=== PATIENT | female | born 1985 | race Caucasian/White ===

== ENCOUNTER 2020-12-20 17:37 | Emergency (ER) | payer OTHER, SELFPAY ==
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
[2020-12-20 17:46] VITALS: BP 127/69; PULSE 92; RESP 18; TEMP 37.3; O2SAT 96; BMI 38.2
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
--- NOTE | 2020-12-20 18:11 | PC.NURSE ---
pt ambulated from ambulance bay to room 14 without difficulty
== END 2020-12-20 19:43 | disposition home or self-care (01) ==
LOC: HO.ED 18:46
PROVIDERS: Emergency Provider Emergency Medicine
DX: Z04.1 Encounter for examination and observation following transport accident (principal); M79.18 Myalgia, other site
CPT/HCPCS: 70450; 99283; 99284

== ENCOUNTER 2021-10-03 10:05 | Emergency (ER) | payer OTHER, SELFPAY ==
--- NOTE | ~2021-10-03 | XR_ITS ---
EXAMINATION: XR CHEST CLINICAL INFORMATION: Cough, shortness of breath, chest pain. COMPARISON: 08/26/2019 chest radiograph. TECHNIQUE: Frontal view of the chest was obtained. FINDINGS: No significant abnormality is noted involving the heart, lungs, mediastinum, bony thorax or soft tissues. XR/XR chest 1V IMPRESSION: No acute cardiopulmonary process.
[2021-10-03 10:07] VITALS: BP 130/75; PULSE 96; RESP 18; TEMP 36.8; O2SAT 98; BMI 124.7
--- NOTE | 2021-10-03 10:10 | ECG_ITS ---
Test Reason : chest pain Blood Pressure : / mmHG Vent. Rate : 086 BPM Atrial Rate : 086 BPM P-R Int : 138 ms QRS Dur : 084 ms QT Int : 336 ms P-R-T Axes : 061 072 041 degrees QTc Int : 402 ms Sinus rhythm with marked sinus arrhythmia Otherwise normal ECG No significant changes when compared with the previous EKG of 14 jan 2018 Referred By: Generic ED Physician Electronically Signed By:JESSICA HENRY
[2021-10-03 10:34] LABS: MANUAL DIFF FLAG NO
[2021-10-03 10:36] VITALS: BP 121/69; PULSE 86; RESP 19; O2SAT 99
[2021-10-03 10:36] LABS: Basophils Percent Auto 0.2 % (0-2); Eosinophils Absolute Auto 0.1 X10*3/uL (0.0-0.4); Eosinophils Percent Auto 0.5 % (0-4); Hematocrit 37.8 % (37.0-47.0); Hemoglobin 12.6 g/dl (12.0-16.0); Imm Gran Abs Auto 0.06 X10*3/uL (0.00-0.03); Imm Gran Pct Auto 0.5 % (0.0-0.4); Lymphocytes Absolute Auto 0.7 X10*3/uL (1.2-4.9); Lymphocytes Percent Auto 5.3 % (20-40); Mean Corpuscular HGB Conc 33.3 g/dl (31.0-35.0); Mean Corpuscular Hemoglobin 29.4 pg (27.0-33.0); Mean Corpuscular Volume 88.3 fL (80.0-98.0); Mean Platelet Volume 10.2 fL (9.4-12.3); Monocytes Absolute Auto 0.7 X10*3/uL (0.1-1.2); Monocytes Percent Auto 5.4 % (2-11); Neutrophils Absolute Auto 11.3 x10*3/uL (2.0-8.3); Neutrophils Percent Auto 88.1 % (45-73); Platelet Count 292 X10*3/uL (160-400); Red Blood Count 4.28 X10*6/uL (4.20-5.50); Red Cell Distribution Width 12.8 % (11.0-16.0); White Blood Count 12.8 X10*3/uL (4.8-10.8)
--- NOTE | 2021-10-03 10:51 | ED_ITS ---
HPI - Chest Pain General Chief Complaint: Chest Pain Stated Complaint: chest pain, sob, back pain Time Seen by Provider: 10/03/21 10:29 Source: patient Mode of arrival: ambulatory History of Present Illness HPI narrative: 36-year-old female with no significant past medical history presenting to the ED complaining of chills, congestion, productive cough, SOB, chest discomfort worse with deep inspiration and coughing x1 week. Admits was seen at urgent care yesterday prescribed prednisone and Augmentin which she has taken x1 day without improvement. Denies fever, chills, abdominal pain, recent travel, pedal edema MD complaint: chest discomfort Onset (ago): week(s) Related Data Previous Rx's Medication Instructions Recorded albuterol sulfate 90 mcg/actuation 2 puff INHALATION Q6H PRN #6.7 g 10/02/21 aerosol inhaler amoxicillin 875 mg-potassium 1 tab PO BID 10 Days #20 tab 10/02/21 clavulanate 125 mg tablet prednisone 20 mg tablet 20 mg PO DAILY 5 Days #5 tab 10/02/21 benzonatate 200 mg capsule 200 mg PO TID PRN #14 cap 10/03/21 Allergies Allergy/AdvReac Type Severity Reaction Status Date / Time No Known Allergies Allergy Unverified 10/02/21 16:22 [No Known Allergies*] Review of Systems Review of Systems: Constitutional: No Fever, No Chills, No Fatigue, No Malaise ENT/Mouth: No Ear Pain, + Nasal Congestion, No Sinus Pain, No Hoarseness, No sore throat, + Rhinorrhea, No Swallowing Difficulty Eyes: No Eye Pain, No Swelling, No Redness Cardiovascular: + Chest Pain, + SOB, No Dyspnea on Exertion, No Orthopnea, No Edema, No Palpitations Respiratory: + Cough, + Sputum, No Wheezing, No Dyspnea Gastrointestinal: No Nausea, No Vomiting, No Diarrhea, No Constipation, No Abdominal pain Genitourinary: No Dysuria, No Urinary Frequency, No Hematuria, No Flank Pain, No Urinary Flow Changes Musculoskeletal: No joint pain, No Myalgias, No Joint Swelling Skin: No Skin Lesions, No rash Neuro: No Weakness, No Numbness, No Dizziness, No Headache Yes all other systems are reviewed and are negative [facility] Past Medical History Attestation statement: The following information was validated with the patient. Medical History No known health problems Surgical History No history of previous surgery Social History Social History Advance Directives: No Advance Directives Information Provided: No Physical Exam Vital Signs: Vital Signs: Last Vital Signs Temp 98.2 F 10/03/21 12:27 Pulse 87 10/03/21 12:27 Resp 17 10/03/21 12:27 BP 124/77 10/03/21 12:27 Pulse Ox 97 10/03/21 12:27 BMI result Body Mass Index 124.7 Const: General: cooperative, healthy appearing, no acute distress, alert and awake Orientation/consciousness: patient oriented x3 Limitations: no limitations HEENT: Head: Yes normal to inspection and Yes atraumatic Ears: hearing grossly normal bilaterally General nose exam: Normal external nose present Face and sinus: Yes normal facial exam Eyes: General: appearance normal, both eyes and all related structures EOM: EOMs intact bilaterally Neck: Neck: Yes normal visual inspection and Yes no meningeal signs Resp: Effort & Inspection: normal respiratory effort and no respiratory distress Auscultation: clear to auscultation bilaterally, no rhonchi and no wheezes Cardio: Rate: regular rate and tachycardic Heart sounds: S1 normal heart sound present and S2 normal heart sound present GI: Inspection: Yes normal to inspection Palpation (GI): Soft to palpation, nontender, no guarding and not rigid : General: Yes no CVA tenderness Back/Spine/Pelvis: Back: no CVA tenderness Skin: Rashes: no rashes Wounds: no wounds Neuro: General: patient oriented x3, tone normal and no meningeal signs Gait exam (Neuro): Normal gait present Extrem: General: Yes normal to inspection and Yes no pedal edema Course Course Course Narrative: -1143--mild leukocytosis to 12.8 likely contributory to prednisone use > low concern for severe sepsis. D-dimer negative. Labs otherwise unremarkable including negative troponin -COVID-19 and influenza negative XR chest 1V IMPRESSION: No acute cardiopulmonary process. >> results discussed with patient including worrisome signs and symptoms and strict return precautions and needed follow-up with PCP. Recommended patient continue taking prednisone and Augmentin. Will also prescribe Tessalon Perles. ? MDM - Chest Pain MDM Narrative Medical decision making narrative: 36-year-old female with no significant past medical history presenting to the ED complaining of chills, congestion, productive cough, SOB, chest discomfort worse with deep inspiration and coughing x1 week. On exam tachycardic, NAD, coughing on exam likely contributing to tachycardia. Lungs CTA. No pedal edema. Concern for viral illness including COVID-19 versus influenza vs bronchitis vs pneumonia vs PE. Low concern for severe sepsis at this time. Symptoms atypical for ACS Plan: EKG, labs, CXR, COVID-19/influenza testing, DuoNeb, re-evaluate Medical Records Data Attestation: I reviewed the patient's medical records. Lab Data Attestation: I reviewed the patient's lab results. Result diagrams: 10/03/21 10:30 10/03/21 10:30 Labs: Lab Results 10/03/21 10/03/21 10/03/21 Range/Units 10:30 10:30 10:30 WBC 12.8 H (4.8-10.8) X10*3/uL RBC 4.28 (4.20-5.50) X10*6/uL Hgb 12.6 (12.0-16.0) g/dl Hct 37.8 (37.0-47.0) % MCV 88.3 (80.0-98.0) fL MCH 29.4 (27.0-33.0) pg MCHC 33.3 (31.0-35.0) g/dl RDW 12.8 (11.0-16.0) % Plt Count 292 (160-400) X10*3/uL MPV 10.2 (9.4-12.3) fL Immature Gran % (Auto) 0.5 H (0.0-0.4) % Neut % (Auto) 88.1 H (45-73) % Lymph % (Auto) 5.3 L (20-40) % Ashe % (Auto) 5.4 (2-11) % Eos % (Auto) 0.5 (0-4) % Baso % (Auto) 0.2 (0-2) % Lymph # (Auto) 0.7 L (1.2-4.9) X10*3/uL Ashe # (Auto) 0.7 (0.1-1.2) X10*3/uL Eos # (Auto) 0.1 (0.0-0.4) X10*3/uL Baso # (Auto) 0.0 (0.0-0.2) X10*3/uL Abs Immat Gran (auto) 0.06 H (0.00-0.03) X10*3/uL Absolute Neuts (auto) 11.3 H (2.0-8.3) x10*3/uL Absolute Nucleated RBC 0.000 (0.0-0.012) X10*3/uL Nucleated RBC % (auto) 0.0 (0.0-0.2) /100WBC D-Dimer High Sensitivty NG/ML Sodium 139 (135-145) mmol/L Potassium 4.3 (3.3-5.1) mmol/L Chloride 106 (96-108) mmol/L Carbon Dioxide 23 (22-29) mmol/L Anion Gap 14 (12-20) BUN 9 (9-16) mg/dL Creatinine 0.62 (0.5-1.4) mg/dL Estim Creat Clear Calc 72.4 Estimated GFR > 60 Random Glucose 102 (60-115) mg/dL Calcium 9.8 (8.4-10.2) mg/dL Magnesium 1.8 (1.6-2.6) mg/dL Total Bilirubin 0.4 (0.0-1.0) mg/dL Direct Bilirubin < 0.2 (0.0-0.5) mg/dL AST 15 (5-31) U/L ALT 18 (0-31) U/L Alkaline Phosphatase 117 (39-117) U/L Troponin I High Sens < 3.5 (<3.5-17.0) ng/L B-Natriuretic Peptide 11 (<100) pg/mL Total Protein 7.5 (6.5-8.0) g/dL Albumin 4.3 (3.5-5.0) g/dL COVID-19 (ARNOLDO) (Negative) COVID-19 Clin Com Influenza Type A (JAMIL) (Negative) Influenza Type B (JAMIL) (Negative) Influenza A & B Note 10/03/21 10/03/21 10/03/21 Range/Units 10:48 10:48 10:48 WBC (4.8-10.8) X10*3/uL RBC (4.20-5.50) X10*6/uL Hgb (12.0-16.0) g/dl Hct (37.0-47.0) % MCV (80.0-98.0) fL MCH (27.0-33.0) pg MCHC (31.0-35.0) g/dl RDW (11.0-16.0) % Plt Count (160-400) X10*3/uL MPV (9.4-12.3) fL Immature Gran % (Auto) (0.0-0.4) % Neut % (Auto) (45-73) % Lymph % (Auto) (20-40) % Ashe % (Auto) (2-11) % Eos % (Auto) (0-4) % Baso % (Auto) (0-2) % Lymph # (Auto) (1.2-4.9) X10*3/uL Ashe # (Auto) (0.1-1.2) X10*3/uL Eos # (Auto) (0.0-0.4) X10*3/uL Baso # (Auto) (0.0-0.2) X10*3/uL Abs Immat Gran (auto) (0.00-0.03) X10*3/uL Absolute Neuts (auto) (2.0-8.3) x10*3/uL Absolute Nucleated RBC (0.0-0.012) X10*3/uL Nucleated RBC % (auto) (0.0-0.2) /100WBC D-Dimer High Sensitivty 166 NG/ML Sodium (135-145) mmol/L Potassium (3.3-5.1) mmol/L Chloride (96-108) mmol/L Carbon Dioxide (22-29) mmol/L Anion Gap (12-20) BUN (9-16) mg/dL Creatinine (0.5-1.4) mg/dL Estim Creat Clear Calc Estimated GFR Random Glucose (60-115) mg/dL Calcium (8.4-10.2) mg/dL Magnesium (1.6-2.6) mg/dL Total Bilirubin (0.0-1.0) mg/dL Direct Bilirubin (0.0-0.5) mg/dL AST (5-31) U/L ALT (0-31) U/L Alkaline Phosphatase (39-117) U/L Troponin I High Sens (<3.5-17.0) ng/L B-Natriuretic Peptide (<100) pg/mL Total Protein (6.5-8.0) g/dL Albumin (3.5-5.0) g/dL COVID-19 (ARNOLDO) Negative (Negative) COVID-19 Clin Com See Note Influenza Type A (JAMIL) Negative (Negative) Influenza Type B (JAMIL) Negative (Negative) Influenza A & B Note See Note Discharge Plan Discharge Clinical Impression: Atypical chest pain, Bronchitis Patient Disposition: Home, Self-Care Instructions: Acute Bronchitis (ED) Additional Instructions: Your blood work and chest x-ray were reassuring. You tested negative for COVID- 19 and the flu. Continue taking previously prescribed antibiotic, steroid, and inhaler. In addition Tessalon Perles for cough, take as needed. Rest. Stay hydrated. Follow up with her doctor. If symptoms persist or worsen return to any emergency department or call 911 Silvestre an?lisis de juanis y la radiograf?a de t?rax fueron tranquilizadores. Man negativo para COVID-19 y la gripe. Contin?e tomando el antibi?leonor, el esteroide y el inhalador recetados previamente. Adem?s de Tessalon Perles para la tos, t?merino seg?n sea necesario. Descansar. Mantente hidratado. Seguimiento con silvestre m?dico. Si los s?ntomas persisten o empeoran, regrese a cualquier departamento de emergencia o llame al 911 Prescriptions: New benzonatate 200 mg capsule 200 mg PO TID PRN (Reason: cough) Qty: 14 0RF No Action prednisone 20 mg tablet 20 mg PO DAILY 5 Days Qty: 5 0RF albuterol sulfate 90 mcg/actuation HFA aerosol inhaler 2 puff inhalation Q6H PRN (Reason: shortness of breath or wheezing) Qty: 6.7 0RF amoxicillin-pot clavulanate 875-125 mg tablet 1 tab PO BID 10 Days Qty: 20 0RF Referrals: Estela Horvath MD [Primary Care Provider] - 3 days Print Language: Polish
[2021-10-03 10:54] LABS: Alanine Aminotransferase 18 U/L (0-31); Albumin Level 4.3 g/dL (3.5-5.0); Alkaline Phosphatase 117 U/L (39-117); Anion Gap 14 (12-20); Aspartate Amino Transferase 15 U/L (5-31); Bilirubin Direct < 0.2 mg/dL (0.0-0.5); Bilirubin Total 0.4 mg/dL (0.0-1.0); Blood Urea Nitrogen 9 mg/dL (9-16); Calcium 9.8 mg/dL (8.4-10.2); Carbon Dioxide 23 mmol/L (22-29); Chloride 106 mmol/L (96-108); Creatinine Clr Calc Pharmacy 72.4; Estimated Glomerular Filt Rate > 60; Glucose Random 102 mg/dL (60-115); Potassium 4.3 mmol/L (3.3-5.1); Sodium 139 mmol/L (135-145); Total Protein 7.5 g/dL (6.5-8.0)
[2021-10-03] MEDS: Albuterol/Iprat 2.5/0.5MG 3 ML AMPUL.NEB INHALE (10:54)
[2021-10-03 10:55] VITALS: PULSE 91; RESP 18; O2SAT 97
[2021-10-03 10:55] LABS: Magnesium 1.8 mg/dL (1.6-2.6)
[2021-10-03 11:00] LABS: B Type Natriuretic Peptide 11 pg/mL (<100); Troponin-I High Sensitivity < 3.5 ng/L (<3.5-17.0)
[2021-10-03 11:07] LABS: D Dimer High Sensitivity 166 NG/ML
[2021-10-03 11:14] LABS: COVID-19 Test Negative (Negative); IDNOW Serial# 16C4AD1C; Influenza A Negative (Negative); Influenza B2 Negative (Negative)
[2021-10-03 11:51] VITALS: PULSE 90
[2021-10-03 12:27] VITALS: BP 124/77; PULSE 87; RESP 17; TEMP 36.8; O2SAT 97
== END 2021-10-03 13:01 | disposition home or self-care (01) ==
PROVIDERS: Physician Assistant; Emergency Provider Emergency Medicine; PCP Internal Medicine
DX: R07.89 Other chest pain (principal); J20.9 Acute bronchitis, unspecified; Z20.822 Contact with and (suspected) exposure to COVID-19; R06.02 Shortness of breath
CPT/HCPCS: 36415; 71045; 80048; 80076; 83735; 83880; 84484; 85025; 85379; 87502; 87635; 93005; 94640; 99284

== ENCOUNTER 2023-01-24 14:16 | Outpatient (AMB) | payer OTHER, SELFPAY ==
--- NOTE | 2023-01-24 14:16 | MHC.PC.OV ---
Vital Signs 01/24/23 14:17 Height 5 ft 3 in Weight 248 lb BMI 43.9 BP 110/64 Blood Pressure Location Lt brachial Position Sitting Respiration 12 Pulse 88 Pulse Source Pulse Oximeter Pulse Oximetry (%) 98 Oxygen Delivery Method Room Air Intake Visit Reasons: New Patient Intake Note: Patient states that ever since shes had covid she has to sometimes use inhaler in order to breathe. 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 Information Interpreted: non-clinical & clinical Accompanied by: Self / Same As Patient Allergies No Known Allergies [No Known Allergies*] Allergy (Verified 01/24/23 14:33) Medication List - Last Reconciled 01/24/23 by CB Morgan albuterol sulfate 90 mcg/actuation 2 puffs inhalation Q6H PRN Tobacco use date assessed: 01/24/23 Dental Screening Dental Screen Date: 01/24/23 Did you have a dental visit in the last 12 months?: Yes Did you have a dental problem in the last 6 months where you did not have access to dental care?: No Was dental information given to patient?: Patient has dentist HPI HPI Comments History of Present Illness Details 37-year-old female new patient presents today to establish care. Past medical history significant for hashimotos, thyroid nodule and shortness of breath after COVID. Patient reports problems with her lungs went ER september 2021 for bronchitis. Patient cotninues to have ongoing SOB with activity and in the humidity. Patient reports uses albuterol rescue inhaler 1x a week. Patient reports that she was told to see a line service attendant in the past however she did not have insurance at the time. Pap: Referral entered. eye exam: Recommended every couple years. [facility] Medical History (Updated 01/25/23 @ 07:10 by CB Morgan) Thyroid nodule Surgical History (Updated 01/24/23 @ 14:42 by CB Morgan) Hx of cholecystectomy Family History (Updated 01/24/23 @ 14:42 by CB Morgan) Mother No problems noted. Father No problems noted. Social History (Updated 01/24/23 @ 14:43 by CB Morgan) Housing: House Alcohol intake: current Alcohol intake frequency: a few times a week Patient Tobacco Use Status: Never used Tobacco e-Cigarette/Vaping Use: Never Used Second Hand Smoke Exposure: No service: No Current occupational status: employed Current occupation: [employer] Cognitive needs: No Hearing needs: No Vision needs: Yes Questionnaire PHQ-9 Over the last 2 weeks, how often have you been bothered by any of the following problems? 1. Little interest or pleasure in doing things: not at all 2. Feeling down, depressed, or hopeless: several days 3. Trouble falling or staying asleep, or sleeping too much: several days 4. Feeling tired or having little energy: several days 5. Poor appetite or overeating: several days (poor appetite) 6. Feeling bad about yourself - or that you are a failure or have let yourself or your family down: not at all 7. Trouble concentrating on things, such as reading the newspaper or watching television: not at all 8. Moving or speaking so slowly that other people could have noticed. Or the opposite - being so fidgety or restless that you have been moving around a lot more than usual: not at all 9. Thoughts that you would be better off or of hurting yourself in some way: not at all Total score: 4 Depression Screening Interpretation: Negative Source: Developed by Drs. Rocael Swift, Shaila Briceno, Jose Weaver and colleagues, with an educational pete from [employer]. Thrive Questionnaire Date Thrive assessed: 01/24/23 I am a: Patient What is your living situation today?: I have a steady place to live Within the past 12 months, did the food you bought not last and you didn't have the money to get more?: Never true Within the past 12 months, did you worry whether your food would run out before you got money to buy more?: Never true Do you have trouble paying for medicines?: No Do you have trouble getting transportation to medical appointments?: No Do you have trouble paying your heating and electricity bill?: No Do you have trouble taking care of your child, family member or friend?: No Do you have trouble with day-to-day activities such as bathing, preparing meals, shopping, managing finances, etc.?: No Are you currently unemployed and looking for a job?: No Are you interested in more education?: Yes Please select the resources that you would like help with: None Currently or been in a relationship where the following occur: no concerns reported AUDIT C Alcohol Use Questionnaire (AUDIT-C) 1. How often do you have a drink containing alcohol?: 2-3 times a week 2. How many drinks containing alcohol do you have on a typical day when you are drinking?: 3 or 4 3. How often do you have six or more drinks on one occasion?: Never Total Score: 4 MARK-7 AMB Questionnaire MARK-7 Date MARK - 7 assessed: 01/24/23 Feeling nervous, anxious, or on edge: 3 = Nearly every day Not being able to stop or control worryin = Several days Worrying too much about different things: 0 = Not at all Trouble relaxin = Not at all Being so restless that it is hard to sit still: 0 = Not at all Becoming easily annoyed or irritable: 0 = Not at all Feeling afraid as if something awful might happen: 0 = Not at all Total MARK-7 score (0-4 normal; 5-9 mild; 10-14 moderate; 15-21 severe): 4 Source: Developed by Drs. Rocael Swift, Shaila Briceno, Jose Weaver and colleagues, with an educational pete from [employer]. Review of Systems Const Denies chills, Denies fatigue, Denies fever(s) and Denies poor appetite Eyes Denies no additional complaints ENT Reports Normal hearing present Card Denies chest pain, Denies syncope, Denies rapid heart rate and Denies dyspnea Resp Denies cough and Denies dyspnea GI Denies change in stool character, Denies constipation, Denies diarrhea, Denies nausea and Denies vomiting Denies urinary frequency, Denies dysuria and Denies urinary urgency Neuro Reports Normal hearing present, Denies confusion and Denies syncope Psych Denies confusion Endo Denies fatigue Physical exam (Primary Care) Vital Signs: Last Vital Signs Pulse 88 01/24/23 14:17 Resp 12 01/24/23 14:17 BP 110/64 01/24/23 14:17 Pulse Ox 98 01/24/23 14:17 Oxygen Delivery Method Room Air 01/24/23 14:17 BMI result Body Mass Index 43.9 Tobacco/Smoking Status: Tobacco use Status Tobacco use date assessed 01/24/23 01/24/23 14:29 Patient Tobacco Use Status Never used Tobacco 01/24/23 14:43 e-Cigarette/Vaping Use Never Used 01/24/23 14:43 PHQ-9: PHQ-9 Score PHQ-9: Total score 4 01/24/23 14:48 Depression Screening Interpretation: Negative Thrive Assessment: Date of Thrive Assessment Date Thrive assessed 01/24/23 01/24/23 14:29 Currently or been in a relationship where the following occur: no concerns reported Const General: No confusion Orientation/consciousness: No confusion HENMT Head: Yes normocephalic and Yes atraumatic Eyes Conjunctivae: conjunctivae normal Chest Chest palpation & inspection: normal inspection of the chest Resp Effort & Inspection: normal respiratory effort Auscultation: clear to auscultation bilaterally, no crackles, no rhonchi and no wheezes Cardio Rate: regular rate Rhythm: regular rhythm Heart sounds: S1 normal heart sound present and S2 normal heart sound present GI Inspection: Yes normal to inspection Neuro General: No confusion Cranial nerves: Yes Normal hearing present Extrem General: No edema Assessment and Plan Assessment & Plan (1) Shortness of breath: Code(s): R06.02 - Shortness of breath Plan: Pulmonary function test ordered to further evaluate for restrictive lung disease. Referral entered to pulmonology as requested by patient. 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 Plan Follow-up in 3 months for complete physical exam. Orders: Orders PFT pulmonary function test 01/24/23 R06.02 - Shortness of breath Complete Blood Count Auto Diff 01/24/23 Z13.0 - Encounter for screening for diseases of the blood and blood-forming organs and certain disorders involving the immune mechanism Comprehensive [place]. Panel Fast 01/24/23 Z13.1 - Encounter for screening for diabetes mellitus Lipid Panel 01/24/23 Z13.220 - Encounter for screening for lipoid disorders TSH reflex Free T4 01/24/23 Z13.29 - Encounter for screening for other suspected endocrine disorder Referrals Pulmonology Referral R06.02 - Shortness of breath [employer] Referral Z12.4 - Encounter for screening for malignant neoplasm of cervix Ophthalmology Referral Z01.00 - Encounter for examination of eyes and vision without abnormal findings Coding Level of Care Code Est Pt Level 3 (31965) Diagnoses Shortness of breath R06.02 Garo's disease E06.3
[2023-01-24 14:17] VITALS: BP 110/64; PULSE 88; RESP 12; O2SAT 98; BMI 43.9
== END 2023-01-24 14:45 | disposition home or self-care (01) ==
PROVIDERS: PCP Internal Medicine; Visit Provider Nurse Practitioner Family
DX: R06.02 Shortness of breath (principal); E06.3 Autoimmune thyroiditis
CPT/HCPCS: 99213

== ENCOUNTER 2023-02-06 10:30 | Emergency (ER) | payer OTHER, SELFPAY ==
--- NOTE | 2023-02-06 11:03 | ED.GENADULT ---
HPI - General Adult General Stated complaint: Chest Back R Arm Pain No Injury Related Data Previous Rx's Medication Instructions Recorded albuterol sulfate 90 mcg/actuation 2 puff inhalation Q6H PRN 10/02/21 aerosol inhaler shortness of breath or wheezing #6.7 grams Allergies Allergy/AdvReac Type Severity Reaction Status Date / Time No Known Allergies Allergy Verified 01/24/23 14:33 [No Known Allergies*] [facility] Past Medical History Medical History (Updated 01/25/23 @ 07:10 by CB Morgan) Thyroid nodule Surgical History (Updated 01/24/23 @ 14:42 by CB Morgan) Hx of cholecystectomy Family History Family History (Updated 01/24/23 @ 14:42 by CB Morgan) Mother No problems noted. Father No problems noted. Social History Social History (Updated 01/24/23 @ 14:43 by CB Morgan) Housing: House Alcohol intake: current Alcohol intake frequency: a few times a week Patient Tobacco Use Status: Never used Tobacco e-Cigarette/Vaping Use: Never Used Second Hand Smoke Exposure: No service: No Current occupational status: employed Current occupation: [employer] Cognitive needs: No Hearing needs: No Vision needs: Yes Course Course Course Narrative: This is an RME: Additional HPI, ROS, PE not included below will be deferred to primary provider. This is a [id number]-female, with hx of hashimotos, thyroid nodules, presenting to the emergency department with complaints of intermittent chest pain and right shoulder pain x 3 days. Also reporting that she had nausea, vomiting, diarrhea x 6 days. VSS. Patient well-appearing, mild tenderness palpation along the anterior chest wall. No known cardiac problems. No sick contacts. Vital signs stable. Plan: Labs, EKG, chest x-ray, UA Discharge Plan Discharge Prescriptions: No Action albuterol sulfate 90 mcg/actuation HFA aerosol inhaler 2 puff inhalation Q6H PRN (Reason: shortness of breath or wheezing) Qty: 6.7 0RF
[2023-02-06 11:04] VITALS: BP 118/75; PULSE 76; RESP 18; TEMP 37.2; O2SAT 98; BMI 43.7
[2023-02-06 13:38] VITALS: BP 115/76; PULSE 66; RESP 18; TEMP 36.4; O2SAT 98
--- NOTE | 2023-02-06 13:54 | ED.CHESTPAIN ---
HPI - Chest Pain General Chief Complaint: Chest Pain Stated Complaint: Chest Back R Arm Pain No Injury Time Seen by Provider: 02/06/23 13:22 History of Present Illness HPI narrative: Patient is 37 years old presents today with having chest pain. The chest pain is on the right side it radiates to the shoulder. She has no history of diabetes, hypertension, high cholesterol, smoking, [place]. Family history of coronary artery disease mother had coronary disease in her 40s. Patient denies any diaphoresis. No leg swelling. Did not travel. Not on control. Does not think she is . Pain is made worse with movement of the right arm. There is no pain on movement of the left arm. Related Data Previous Rx's Medication Instructions Recorded albuterol sulfate 90 mcg/actuation 2 puff inhalation Q6H PRN 10/02/21 aerosol inhaler shortness of breath or wheezing #6.7 grams Allergies Allergy/AdvReac Type Severity Reaction Status Date / Time No Known Allergies Allergy Verified 01/24/23 14:33 [No Known Allergies*] Review of Systems Review of Systems: Positive chest pain Yes all other systems are reviewed and are negative [facility] Past Medical History Attestation statement: The following information was validated with the patient. Medical History Thyroid nodule Surgical History Hx of cholecystectomy Family History Family History Mother No problems noted. Father No problems noted. Social History Social History Housing: House Alcohol intake: current Alcohol intake frequency: a few times a week Patient Tobacco Use Status: Never used Tobacco e-Cigarette/Vaping Use: Never Used Second Hand Smoke Exposure: No Advance Directives: No service: No Current occupational status: employed Current occupation: [employer] Cognitive needs: No Hearing needs: No Vision needs: Yes Physical Exam Vital Signs: Vital Signs: Last Vital Signs Temp 97.5 F 02/06/23 13:38 Pulse 66 02/06/23 13:38 Resp 18 02/06/23 13:38 BP 115/76 02/06/23 13:38 Pulse Ox 98 02/06/23 13:38 O2 Del Method Room Air 02/06/23 13:38 BMI result Body Mass Index 43.7 Appearance: Alert. Oriented X3. No acute distress. Eyes: Pupils equal, round and reactive to light. ENT: Pharynx normal. Neck: Normal inspection. Neck supple. No lymph nodes noted. No crepitus CVS: Normal heart rate and rhythm. Pulses normal. Normal S1 and S2 Respiratory: No respiratory distress. Breath sounds normal. No Wheezing. No rales Abdomen: Soft and nontender. No rigidity. No distention. good BS x4 Skin: Skin warm and dry. Normal skin color. Normal skin turgor. Extremities: No lower extremity edema. Neurovascular intact to all extremities. No Lacerations. No Rash Neuro: Oriented X 3. No motor deficit. No sensory deficit. Moving all extermities. No slurred speech Medical Decision Making Medical Decision Making [facility] Narrative: Positive chest pain atypical patient has only 1 cardiac risk factor being a family history of CAD. Pain sounds musculoskeletal. Chest x-ray by my interpretation showed no acute evidence of pneumonia pneumothorax. My interpretation patient's EKG showed a sinus rhythm heart rate is 70 CA QRS QTC within normal limits as no acute ST segment elevation. A 2nd set of troponins being drawn. If they are negative patient's heart score is less than 3 will not require admission will have patient follow-up on an outpatient basis. Two sets of cardiac enzymes are negative. Unlikely ACS. Patient's D-dimer negative in the setting of low risk for PE unlikely to be pulmonary emboli. In stable condition with discharge home. Differential Diagnosis Differential Diagnoses: The differential diagnosis associated with the presentation includes Musculoskeletal chest pain, ACS, PE, pneumonia, rib fracture Admission/Observation Consideration of admission/observation: Escalation of care including admission/observation considered Given heart score is less than 3 will not be admitted Lab Data [facility] Lab Attestation statement: I reviewed the patient's lab results. 02/06/23 12:15 02/06/23 12:15 Labs: Lab Results 02/06/23 02/06/23 02/06/23 Range/Units 12:15 13:33 15:10 WBC 7.7 (4.8-10.8) X10*3/uL RBC 4.45 (4.20-5.50) X10*6/uL Hgb 13.2 (12.0-16.0) g/dl Hct 39.4 (37.0-47.0) % MCV 88.5 (80.0-98.0) fL MCH 29.7 (27.0-33.0) pg MCHC 33.5 (31.0-35.0) g/dl RDW 13.0 (11.0-16.0) % Plt Count 279 (160-400) X10*3/uL MPV 10.1 (9.4-12.3) fL Immature Gran % (Auto) 0.4 (0.0-0.4) % Neut % (Auto) 74.8 H (45-73) % Lymph % (Auto) 13.6 L (20-40) % [place]ke % (Auto) 9.8 (2-11) % Eos % (Auto) 1.0 (0-4) % Baso % (Auto) 0.4 (0-2) % Lymph # (Auto) 1.1 L (1.2-4.9) X10*3/uL [place]ke # (Auto) 0.8 (0.1-1.2) X10*3/uL Eos # (Auto) 0.1 (0.0-0.4) X10*3/uL Baso # (Auto) 0.0 (0.0-0.2) X10*3/uL Abs Immat Gran (auto) 0.03 (0.00-0.03) X10*3/uL Absolute Neuts (auto) 5.8 (2.0-8.3) x10*3/uL Absolute Nucleated RBC 0.000 (0.0-0.012) X10*3/uL Nucleated RBC % (auto) 0.0 (0.0-0.2) /100WBC D-Dimer High Sensitivty < 150 NG/ML Sodium 140 (135-145) mmol/L Potassium 3.9 (3.3-5.1) mmol/L Chloride 106 (96-108) mmol/L Carbon Dioxide 25 (22-29) mmol/L Anion Gap 13 (12-20) BUN 10 (9-16) mg/dL Creatinine 0.64 (0.5-1.4) mg/dL Estim Creat Clear Calc 147.6 Estimated GFR > 60 Random Glucose 97 (60-115) mg/dL Calcium 9.8 (8.4-10.2) mg/dL Total Bilirubin 0.4 (0.0-1.0) mg/dL Direct Bilirubin 0.1 (0.0-0.5) mg/dL AST 22 (5-31) U/L ALT 22 (0-31) U/L Alkaline Phosphatase 112 (39-117) U/L Troponin I High Sens < 2.7 (<3.5-17.0) ng/L Total Protein 7.5 (6.5-8.0) g/dL Albumin 4.0 (3.5-5.0) g/dL Urine Color Yellow Urine Appearance Clear Urine pH 6.5 (5.0-9.0) Ur Specific [place] 1.025 (1.005-1.025) Urine Protein Negative (Neg-Trace) mg/dL Urine Glucose (UA) Negative (Negative) mg/dL Urine Ketones Negative (Negative) mg/dL Urine Blood Negative (Negative) Urine Nitrite Negative (Negative) Ur Leukocyte Esterase Negative (Negative) Urine Test NEGATIVE (NEGATIVE) Influenza Type A (PCR) NEGATIVE (Negative) Influenza Type B (PCR) NEGATIVE (Negative) RSV RNA Qual (PCR) NEGATIVE (Negative) SARS-CoV-2 RNA (RT-PCR) NEGATIVE (Negative) Independent Interpretation I performed an independent interpretation of an: EKG (Sinus heart rate is 70 CA QRS QTC within normal limits is no acute ST segment elevation) and Plain X-Ray (Chest x-ray negative for pneumonia pneumothorax) Radiology Impression Discussion of test interpretation with radiology: I have reviewed the radiologist's reading. Independent Historian Additional history obtained through the paper carrier External Record Review External record reviewed: Inpatient record Chronic Conditions Garo's thyroiditis Discharge Plan Discharge Clinical Impression: Chest pain Patient Disposition: Home, Self-Care Instructions: Chest Pain (ED) Prescriptions: No Action albuterol sulfate 90 mcg/actuation HFA aerosol inhaler 2 puff inhalation Q6H PRN (Reason: shortness of breath or wheezing) Qty: 6.7 0RF Referrals: Jaleel Thapa MD [Physician] - 02/08/23
[2023-02-06 15:54] VITALS: BP 117/72; PULSE 70; RESP 18; TEMP 36.9; O2SAT 95
== END 2023-02-06 16:00 | disposition home or self-care (01) ==
PROVIDERS: Emergency Provider Emergency Medicine Emergency Medical Services; PCP Internal Medicine
DX: R07.89 Other chest pain (principal); M79.601 Pain in right arm; Z20.822 Contact with and (suspected) exposure to COVID-19; Z20.828 Contact with and (suspected) exposure to other viral communicable diseases; Z79.899 Other long term (current) drug therapy
CPT/HCPCS: 0241U; 36415; 71046; 80048; 80076; 81003; 81025; 84484; 85025; 85379; 93005; 99283; 99285

== ENCOUNTER 2023-02-07 07:58 | Outpatient (REF) | payer OTHER, SELFPAY ==
[2023-02-07 08:07] LABS: MANUAL DIFF FLAG NO
[2023-02-07 08:54] LABS: Basophils Percent Auto 0.6 % (0-2); Eosinophils Absolute Auto 0.1 X10*3/uL (0.0-0.4); Hematocrit 42.2 % (37.0-47.0); Hemoglobin 13.6 g/dl (12.0-16.0); Imm Gran Abs Auto 0.08 X10*3/uL (0.00-0.03); Imm Gran Pct Auto 1.2 % (0.0-0.4); Lymphocytes Percent Auto 13.8 % (20-40); Mean Corpuscular HGB Conc 32.2 g/dl (31.0-35.0); Mean Corpuscular Hemoglobin 29.8 pg (27.0-33.0); Mean Corpuscular Volume 92.3 fL (80.0-98.0); Mean Platelet Volume 10.7 fL (9.4-12.3); Monocytes Absolute Auto 0.6 X10*3/uL (0.1-1.2); Monocytes Percent Auto 8.7 % (2-11); Neutrophils Absolute Auto 5.1 x10*3/uL (2.0-8.3); Neutrophils Percent Auto 74.7 % (45-73); Platelet Count 283 X10*3/uL (160-400); Red Blood Count 4.57 X10*6/uL (4.20-5.50); White Blood Count 6.9 X10*3/uL (4.8-10.8)
[2023-02-07 09:50] LABS: Alanine Aminotransferase 26 U/L (0-31); Albumin Level 4.2 g/dL (3.5-5.0); Alkaline Phosphatase 98 U/L (39-117); Anion Gap 11 (12-20); Aspartate Amino Transferase 23 U/L (5-31); Bilirubin Total 0.6 mg/dL (0.0-1.0); Blood Urea Nitrogen 9 mg/dL (9-16); Calcium 9.6 mg/dL (8.4-10.2); Carbon Dioxide 24 mmol/L (22-29); Chloride 108 mmol/L (96-108); Cholesterol 211 mg/dL (<200); Estimated Glomerular Filt Rate > 60; Glucose Fasting 90 mg/dL (60-99); HDL Cholesterol 46 mg/dL (>40); LDL Cholesterol Calculated 153 mg/dL (<100); Potassium 4.3 mmol/L (3.3-5.1); Sodium 139 mmol/L (135-145); Total Protein 7.6 g/dL (6.5-8.0); Triglycerides 61 mg/dL (<150)
[2023-02-07 09:54] LABS: TSH reflex Free T4 1.42 uIU/mL (0.32-4.0)
== END 2023-02-07 07:59 | disposition home or self-care (01) ==
LOC: HO.LAB 07:58
PROVIDERS: PCP Nurse Practitioner Family; Visit Provider Nurse Practitioner Family
DX: Z13.1 Encounter for screening for diabetes mellitus (principal); Z13.29 Encounter for screening for other suspected endocrine disorder; Z13.0 Encounter for screening for diseases of the blood and blood-forming organs and certain disorders involving the immune mechanism; Z13.220 Encounter for screening for lipoid disorders
CPT/HCPCS: 36415; 80053; 80061; 84443; 85025

== ENCOUNTER 2023-03-28 07:52 | Outpatient (REF) | payer OTHER, SELFPAY ==
--- NOTE | 2023-03-28 07:45 | PFT_ITS ---
Indication: Dyspnea Spirometry [FEV1 to FVC 85%; FEV1 2.75 L which is 97% predicted; FVC 3.24 L which is 92% predicted. No significant response to bronchodilators noted. Maximum voluntary ventilation 89% predicted.] Lung Volumes [Total lung capacity 92% predicted] Diffusion Capacity [Diffusing capacity 104% predicted] Comparisons [None] Interpretation No obstructive nor restrictive ventilatory defects identified. No response to bronchodilators noted. Normal maximum voluntary ventilation. Lung volumes are normal and diffusing capacity is also within normal limits. Clinical correlation warranted MTDD
== END 2023-03-28 07:53 | disposition home or self-care (01) ==
LOC: HO.RESP 07:52
PROVIDERS: PCP Nurse Practitioner Family; Visit Provider Nurse Practitioner Family
DX: R06.02 Shortness of breath (principal)
CPT/HCPCS: 94010; 94727; 94729

== ENCOUNTER 2023-04-08 14:42 | Outpatient (REF) | payer OTHER, SELFPAY ==
[2023-04-10 05:23] LABS: CT PCR NOT DETECTED (Not Detect.); NG PCR NOT DETECTED (Not Detect.)
[2023-04-10 12:21] LABS: BV Int Neg Control Negative (Negative); BV Int Pos Control Positive (Positive)
[2023-04-13 00:48] LABS: HPV 16 RNA NOT DETECTED (NOT DETECTED); HPV mRNA E6/E7 rflx Detected (Not Detected)
== END 2023-04-08 14:43 | disposition home or self-care (01) ==
LOC: HO.LNP 14:42
PROVIDERS: PCP Internal Medicine; Visit Provider Advanced Practice Midwife
DX: Z01.419 Encounter for gynecological examination (general) (routine) without abnormal findings (principal); E66.01 Morbid (severe) obesity due to excess calories; Z20.2 Contact with and (suspected) exposure to infections with a predominantly sexual mode of transmission; Z79.899 Other long term (current) drug therapy
CPT/HCPCS: 0353U; 87480; 87510; 87624; 87625; 87660; 88142; 99385

== ENCOUNTER 2023-04-10 10:50 | Outpatient (AMB) | payer OTHER, SELFPAY ==
--- NOTE | 2023-04-10 10:58 | A.OFFVIS_ITS ---
Intake Vital Signs 04/10/23 10:59 Height 5 ft 3 in Weight 236 lb BMI 41.8 BP 102/62 Blood Pressure Location Lt brachial Position Sitting Pulse 72 Pulse Source Doppler Pulse Oximetry (%) 99 Oxygen Delivery Method Room Air Intake Visit Reasons: Shortness of breath Intake Note: Patient is here for SOB, and dry cough at times. Patient stated after COVID, her breathing has never been the same Medical Stenographer Required: Yes Medical Stenographer Name: Lorenza Clifford Allergies No Known Allergies [No Known Allergies*] Allergy (Verified 04/10/23 11:18) Medication List - Last Reconciled 04/10/23 by Pilar Reynoso MD albuterol sulfate 90 mcg/actuation 2 puffs inhalation Q6H PRN Do you need a note to return to daycare/school/sports/work: No HPI Shortness of breath HPI Details THIS 38 YEARS OLD FEMALE IS BEING SEEN FOR THE 1ST TIME FOR PULMONARY EVALUATION. SHE HAD COVID INFECTION IN 2021 AND SINCE THEN HAS HAD INTERMITTENT COUGH WITH SOME DISCOMFORT IN THE CHEST. SHE HAS USED ALBUTEROL INHALER OFF AND ON, . WITHOUT MUCH DIFFERENCE IN JANUARY OF THIS YEAR SHE WAS SEEN IN THE EMERGENCY ROOM WITH SOME CHEST DISCOMFORT, MOSTLY ON THE RIGHT SIDE RADIATING TO THE SHOULDER. HER CHEST X-RAY WAS NORMAL, SHE WAS NOT FOUND TO HAVE ANY WHEEZING HER. CREPITATIONS SHE WAS ADVISED TO USE ALBUTEROL INHALER ONLY NEEDED. SHE CONTINUES TO BE SHORT OF BREATH WHEN SHE WALKS UP STAIRS OR WALKS FAST OUTDOORS. PATIENT HAD PULMONARY FUNCTION TEST ON 03/28/2023, WHICH WAS REPORTED TO BE NON. SHE DENIES SMOKING OR USING ANY ADDICTIVE DRUGS. SHE IS GROSSLY OVERWEIGHT, BUT DENIES SYMPTOMS OF OBSTRUCTIVE SLEEP APNEA. SHE IS NOT AWARE OF ANY SNORING AT NIGHT, BUT DOES WAKE UP IN THE MORNING WITH DR. MELENDEZ. [facility] Medical History (Updated 04/10/23 @ 12:12 by Pilar Reynoso MD) Chest discomfort Thyroid nodule Surgical History Hx of tubal ligation Hx of cholecystectomy Family History Mother No problems noted. Father No problems noted. Paternal Grandfather Colon cancer Social History Housing: House Unable to assess alcohol history related to: Unknown Alcohol intake: current Alcohol intake frequency: a few times a week Patient Tobacco Use Status: Never used Tobacco e-Cigarette/Vaping Use: Never Used Second Hand Smoke Exposure: No service: No Current occupational status: employed Current occupation: [employer] Cognitive needs: No Hearing needs: No Vision needs: Yes Female Reproductive History Menstrual Age of Menarche: 13 Review of Systems Const All systems reviewed & are unremarkable except as noted in HPI and below Eyes Reports no additional complaints ENT Reports no additional complaints and Reports nasal congestion (MILD OFF AND ON ) Card Reports chest pain (NONSPECIFIC CHEST WALL DISCOMFORT), Denies leg edema and Denies dyspnea on exertion Resp Reports as per HPI and Denies dyspnea on exertion GI Reports no additional complaints Reports no additional complaints Musc Reports no additional complaints Skin/Breast Reports system reviewed and no additional complaints, except as documented Neuro Reports no additional complaints Psych Reports no additional complaints Endo Reports no additional complaints Balta/Lymph Reports no additional complaints Physical Exam Vital Signs: Last Vital Signs Pulse 72 04/10/23 10:59 BP 102/62 04/10/23 10:59 Pulse Ox 99 04/10/23 10:59 Oxygen Delivery Method Room Air 04/10/23 10:59 BMI result Body Mass Index 41.8 CASE OF MORBID OBESITY, Const General: healthy appearing (EXCEPT FOR BEING OVERWEIGHT), comfortable, no acute distress, alert and awake Orientation/consciousness: patient oriented x3 HEENT Head: Yes normal to inspection General nose exam: No nasal polyps present and No nasal discharge present Face and sinus: Yes sinuses nontender Mouth: oropharynx normal (OROPHARYNX IS CROWDED WITH MALLAMPATI CLASS 3) Throat: Yes posterior oropharynx normal Eyes General: appearance normal, both eyes and all related structures Neck Neck: Yes normal visual inspection, Yes no lymphadenopathy, Yes trachea midline and Yes no JVD Thyroid: Thyroid normal Chest Chest palpation & inspection: normal inspection of the chest, normal palpation of entire chest wall and no tenderness Resp Effort & Inspection: normal respiratory effort Auscultation: clear to auscultation bilaterally, no crackles and no wheezes Cardio Palpation: normal PMI Rate: regular rate Rhythm: regular rhythm Heart sounds: no gallops and no murmurs Peripheral pulses: Peripheral pulses 2+ throughout GI Palpation (GI): Soft to palpation, nontender, No hepatosplenomegaly present and no masses Auscultation: normal bowel sounds Back/Spine/Pelvis Thoracic/Lumbar Spine: thoracic and lumbar spine normal to inspection Skin General skin exam: no rashes or lesions noted Neuro General: patient oriented x3 and no focal motor deficits Cranial nerves: Yes CN's II-XII intact bilaterally Extrem General: Yes normal to inspection, Yes no clubbing, cyanosis or edema and Yes no calf tenderness Psych Appearance: grossly normal and well kempt Speech and movement: Normal speech and movement present Results Reviewed Results Reviewed: Chest x-ray on 02/06 unremarkable. Pulmonary function test on 03/28/23 normal no evidence of restrictive or obstructive airway disorder, and no response to bronchodilators Assessment & Plan Assessment & Plan (1) Obesity, morbid, BMI 40.0-49.9: Comment: THIS PATIENT IS MORBIDLY OBESE, SURPRISINGLY SHE DENIES SYMPTOMS OF OBSTRUCTIVE SLEEP APNEA, SHE IS NOT AWARE OF HAVING ANY EXCESSIVE SNORING. Code(s): E66.01 - Morbid (severe) obesity due to excess calories Plan: DISCUSSED WITH HER ABOUT MORBID OBESITY, RISK OF OBSTRUCTIVE SLEEP APNEA WHICH SHE SHOULD WATCH FOR, ALSO TOLD HER THAT THIS MAY BE THE MAIN REASON WHY SHE GETS SHORT OF BREATH ON EXERTION. (2) Shortness of breath: Comment: SHE GETS SHORT OF BREATH ON CLIMBING 1 FLIGHT OF STAIRS OR WALKING OUTDOORS. SHE HAS ONLY OCCASIONAL FEELING OF WHEEZING. I THINK HER SHORTNESS OF BREATH IS DUE TO BEING OVERWEIGHT, AND WHO WERE CONDITIONING. Code(s): R06.02 - Shortness of breath Plan: ADVISED TO LOSE WEIGHT, AND START DOING DEEP BREATHING EXERCISES (3) Chest discomfort: Comment: SHE HAS NONSPECIFIC DISCOMFORT OVER THE RIGHT UPPER CHEST RADIATING TO THE RIGHT SHOULDER. CHEST FINDINGS ARE NORMAL AND CHEST X-RAY WAS NORMAL. HER PULMONARY FUNCTION TEST IS ALSO NORMAL. MOST LIKELY HER CHEST DISCOMFORT IS DUE OF MUSCULOSKELETAL ETIOLOGY. PATIENT IS REASSURED AND EXPLAINED THAT THIS IS NOT DUE TO ANY INTRINSIC LUNG DISEASE. Code(s): R07.89 - Other chest pain Plan: MAY USE OTC ANALGESICS SUCH TYLENOL P.R.N. Coding Level of Care Code New Pt Level 3 (08557) Diagnoses Obesity, morbid, BMI 40.0-49.9 E66.01 Shortness of breath R06.02 Chest discomfort R07.89
[2023-04-10 10:59] VITALS: BP 102/62; PULSE 72; O2SAT 99; BMI 41.8
== END 2023-04-10 11:17 | disposition home or self-care (01) ==
PROVIDERS: PCP Nurse Practitioner Family; Visit Provider Internal Medicine
DX: E66.01 Morbid (severe) obesity due to excess calories (principal); R06.02 Shortness of breath; R07.89 Other chest pain
CPT/HCPCS: 99203

== ENCOUNTER → 2023-04-10 10:50 | Outpatient (BNVA) | payer OTHER, SELFPAY | PROVIDERS: PCP Nurse Practitioner Family; Visit Provider Internal Medicine | DX: R06.02 Shortness of breath (principal); R07.89 Other chest pain; E66.01 Morbid (severe) obesity due to excess calories; Z68.41 Body mass index [BMI] 40.0-44.9, adult | CPT/HCPCS: 99202 ==

== ENCOUNTER 2023-04-16 09:16 | Outpatient (AMB) | payer OTHER, SELFPAY ==
[2023-04-16 09:22] VITALS: BP 130/70; BMI 42.5
--- NOTE | 2023-04-16 09:22 | MHC.OFFVIS ---
Intake Vital Signs 04/16/23 09:22 Height 5 ft 3 in Weight 240 lb BMI 42.5 BP 130/70 Intake Visit Reasons: follow up Information Interpreted: clinical only Fire Hydrant Operator: Fire Hydrant Operator Present Allergies No Known Allergies [No Known Allergies*] Allergy (Verified 04/16/23 09:22) Medication List - Last Reconciled 04/16/23 by Jaqueline Kelly CNM albuterol sulfate 90 mcg/actuation 2 puffs inhalation Q6H PRN Is last menstrual period known: Yes Last menstrual period: 03/28/23 Do you need a note to return to daycare/school/sports/work: No HPI follow up HPI Details Patient is here for a visit at [facility] and it is unclear why she is here as she was just seen last week and labs are still pending GC chlamydia was negative. She had a positive Gardnerella and she did understand the explanation that if she did not have any bad odor or bad discharge or any symptoms of anything she did not need treatment Patient is anxious because she is on the portal that she has HPV positive which has just been resulted however the Pap smear itself is still pending. Multiple rechecks while the patient is here are being done to see if the results arrive while she is here as she is very anxious about this. I discussed with her her past history she has no history of abnormal Pap smears whatsoever her last Pap smear was in about 2017. She is sexually active she had her tubes tied. I reviewed with her that if there is an abnormal result the next step would be a colposcopy with Dr. Esquivel and I reviewed what is done during a colposcopy and how it is performed )and that she would have results within a week or 2 after that). the colposcopy, if it is necessary, would probably be done after the new year. Also reviewed HPV transmission and vaccination and she believes her 2 daughters have been vaccinated but she is going to double check on whether not the vet series was completed. She can expect a call after the results of the Pap are in.. PFSH Medical History Chest discomfort Thyroid nodule Surgical History Hx of tubal ligation Hx of cholecystectomy Family History Mother No problems noted. Father No problems noted. Paternal Grandfather Colon cancer Social History Housing: House Unable to assess alcohol history related to: Unknown Alcohol intake: current Alcohol intake frequency: a few times a week Patient Tobacco Use Status: Never used Tobacco e-Cigarette/Vaping Use: Never Used Second Hand Smoke Exposure: No service: No Current occupational status: employed Current occupation: [employer] Cognitive needs: No Hearing needs: No Vision needs: Yes Female Reproductive History Menstrual Age of Menarche: 13 Date of last menstrual period: 03/28/23 control method: none Physical Exam Vital Signs: Last Vital Signs BP 130/70 04/16/23 09:22 BMI result Body Mass Index 42.5 Assessment & Plan Assessment & Plan (1) Cervical cancer screening: Comment: HPV is positive Pap is still pending patient is anxious about receiving the results explained the possibilities . Code(s): Z12.4 - Encounter for screening for malignant neoplasm of cervix Plan Patient is here for a visit at [facility] and it is unclear why she is here as she was just seen last week and labs are still pending GC chlamydia was negative. She had a positive Gardnerella and she did understand the explanation that if she did not have any bad odor or bad discharge or any symptoms of anything she did not need treatment Patient is anxious because she is on the portal that she has HPV positive which has just been resulted however the Pap smear itself is still pending. Multiple rechecks while the patient is here are being done to see if the results arrive while she is here as she is very anxious about this. I discussed with her her past history she has no history of abnormal Pap smears whatsoever her last Pap smear was in about 2017. She is sexually active she had her tubes tied. I reviewed with her that if there is an abnormal result the next step would be a colposcopy with Dr. Esquivel and I reviewed what is done during a colposcopy and how it is performed )and that she would have results within a week or 2 after that). the colposcopy, if it is necessary, would probably be done after the new year. Also reviewed HPV transmission and vaccination and she believes her 2 daughters have been vaccinated but she is going to double check on whether not the vet series was completed. She can expect a call after the results of the Pap are in.. Coding Level of Care Code Est Pt Level 3 (28316) Diagnoses Cervical cancer screening Z12.4
== END 2023-04-16 10:12 | disposition home or self-care (01) ==
LOC: HO.HWSM 09:16
PROVIDERS: PCP Nurse Practitioner Family; Visit Provider Advanced Practice Midwife
DX: Z12.4 Encounter for screening for malignant neoplasm of cervix (principal)
CPT/HCPCS: 99213

== ENCOUNTER → 2023-04-16 09:16 | Outpatient (BNVA) | payer OTHER, SELFPAY | PROVIDERS: PCP Nurse Practitioner Family; Visit Provider Advanced Practice Midwife | DX: Z12.4 Encounter for screening for malignant neoplasm of cervix (principal) | CPT/HCPCS: 99212 ==

== ENCOUNTER 2023-05-06 09:14 | Outpatient (AMB) | payer OTHER, SELFPAY ==
[2023-05-06 09:22] VITALS: BP 120/80; BMI 42.9
--- NOTE | 2023-05-06 09:22 | MHC.OFFVIS ---
Intake Vital Signs 05/06/23 09:22 Height 5 ft 3 in Weight 242 lb BMI 42.9 BP 120/80 Intake Visit Reasons: Colposcopy Crm Consultant Required: Yes Crm Consultant Language: Advertising Dispatch Clerk Name: Shira [id number] Information Interpreted: non-clinical & clinical Returns Supervisor: Returns Supervisor Present (Edward) Allergies No Known Allergies [No Known Allergies*] Allergy (Verified 05/06/23 09:35) Is last menstrual period known: Yes Last menstrual period: 04/19/23 Post menopausal: No Patient : No HPI HPI Comments History of Present Illness Details Presenting for colposcopy for ASCUS/HPV E6/E7 positive PFSH Medical History Chest discomfort Thyroid nodule Surgical History Hx of tubal ligation Hx of cholecystectomy Family History Mother No problems noted. Father No problems noted. Paternal Grandfather Colon cancer Social History Housing: House Unable to assess alcohol history related to: Unknown Alcohol intake: current Alcohol intake frequency: a few times a week Patient Tobacco Use Status: Never used Tobacco e-Cigarette/Vaping Use: Never Used Second Hand Smoke Exposure: No Patient : No service: No Current occupational status: employed Current occupation: [employer] Cognitive needs: No Hearing needs: No Vision needs: Yes Female Reproductive History Menstrual Age of Menarche: 13 Date of last menstrual period: 04/19/23 control method: permanent sterilization Review of Systems Const All systems reviewed & are unremarkable except as noted in HPI and below Physical Exam Vital Signs: Last Vital Signs BP 120/80 05/06/23 09:22 BMI result Body Mass Index 42.9 General: Yes no CVA tenderness External Female Exam: normal external appearance and normal appearance of the urethra Speculum Exam - Vagina: normal appearance of the vagina, normal palpation, no lesions and no masses Speculum Exam - Cervix: normal appearance of the cervix, normal palpation, no lesions, no masses and nontender Bimanual exam- vagina & uterus: normal bimanual exam, normal palpation, uterine size normal, normal palpation, uterine shape normal, No Cervical tenderness present and non-tender Bimanual Exam- Adnexa, other: normal adnexae Back/Spine/Pelvis Back: no CVA tenderness Office Procedures Colposcopy Before the procedure was started discussed with the patient the procedure, alternatives & all the risks associated with the procedure (bleeding, infection, injury to vagina, bladder, vessels, possible need for transfusion with all its risks) then patient signed the consent Pap smear = ascus/HPV E6, E7 positive Urine test done in the office was negative Speculum inserted, acetic acid used Colposcopy done Transformation zone seen, no acetowhite lesions identified , no cervical biopsies taken , ECC done afterwards. Vaginoscopy of the upper vagina showed no evidence of any aceto-white lesions Monsel solution used for hemostasis. The patient tolerated well . At the end the patient was instructed to call if temp>100.4, abdominal pain, n/v, bleeding; The patient was given the following instructions: nothing per vagina, no intercourse or bath tub use. All questions answered the patient verbalized understanding. Instructed the patient to make an appointment in 2 weeks for follow-up This note was generated with a voice recognition program. Some errors may have been overlooked during the review of this note. Sometimes these errors may affect the content or meaning of a given sentence. [id number] of cervix including upper vagina with ECC Procedure code (CPT) selection complete Assessment & Plan Assessment & Plan (1) ASCUS with positive high risk HPV cervical: Code(s): R87.610 - Atypical squamous cells of undetermined significance on cytologic smear of cervix (ASC-US); R87.810 - Cervical high risk human papillomavirus (HPV) DNA test positive Plan: Discussed with the patient the result of her abnormal pap, its significance, risk of progression, persistence, and regression if untreated. the false positive/negative rate being a screening test, the indication for diagnostic test -colposcopy, biopsy, endocervical curettage. Procedure done, see note. The patient verbalized understanding and agreed with the plan, all questions answered. Orders: Orders AMB Colposcopy Today R87.610 - Atypical squamous cells of undetermined significance on cytologic smear of cervix (ASC-US), R87.810 - Cervical high risk human papillomavirus (HPV) DNA test positive Coding Level of Care Code Procedure Only Diagnoses ASCUS with positive high risk HPV cervical R87.610; R87.810 CPT Codes Colposcopy - CPT: 68208-[id number] of cervix including upper vagina with ECC ([id number])
== END 2023-05-06 09:53 | disposition home or self-care (01) ==
PROVIDERS: PCP Nurse Practitioner Family; Visit Provider Obstetrics & Gynecology
DX: R87.610 Atypical squamous cells of undetermined significance on cytologic smear of cervix (ASC-US) (principal); R87.810 Cervical high risk human papillomavirus (HPV) DNA test positive; Z32.02 Encounter for pregnancy test, result negative
CPT/HCPCS: 57456

== ENCOUNTER 2023-05-06 09:14 | Outpatient (REF) | payer OTHER, SELFPAY | END 2023-05-06 09:15 | disposition home or self-care (01) | LOC: HO.LNP 09:14 | PROVIDERS: PCP Nurse Practitioner Family; Visit Provider Obstetrics & Gynecology | DX: R87.610 Atypical squamous cells of undetermined significance on cytologic smear of cervix (ASC-US) (principal); R87.810 Cervical high risk human papillomavirus (HPV) DNA test positive; Z32.02 Encounter for pregnancy test, result negative | CPT/HCPCS: 57456; 81025; 88305 ==

== ENCOUNTER 2023-06-03 09:34 | Outpatient (AMB) | payer OTHER, SELFPAY ==
--- NOTE | 2023-06-03 09:43 | A.OFFVIS_ITS ---
Intake Vital Signs 06/03/23 09:46 Height 5 ft 3 in Weight 240 lb 4.862 oz BMI 42.6 BP 118/70 Intake Visit Reasons: ECC follow up Factory Focus Technician Required: Yes Factory Focus Technician Language: Yard Associate Name: Laya RICHARDSON Information Interpreted: non-clinical & clinical Accompanied by: Self / Same As Patient Allergies No Known Allergies [No Known Allergies*] Allergy (Verified 05/06/23 09:35) HPI HPI Comments History of Present Illness Details Presenting post colpo for follow-up. The patient is doing well with no complaints. The pathology showed the following: Endocervix, curettage: Squamous mucosa; negative for dysplasia; no endocervical glandular component present. Comment: The patient's previous Pap test ([id number]) is reviewed and the atypical cells may represent reactive changes PFSH Medical History Chest discomfort Thyroid nodule Surgical History Hx of tubal ligation Hx of cholecystectomy Family History Mother No problems noted. Father No problems noted. Paternal Grandfather Colon cancer Social History Housing: House Unable to assess alcohol history related to: Unknown Alcohol intake: current Alcohol intake frequency: a few times a week Patient Tobacco Use Status: Never used Tobacco e-Cigarette/Vaping Use: Never Used Second Hand Smoke Exposure: No service: No Current occupational status: employed Current occupation: [employer] Cognitive needs: No Hearing needs: No Vision needs: Yes Female Reproductive History Menstrual Age of Menarche: 13 Review of Systems Const All systems reviewed & are unremarkable except as noted in HPI and below Reports as per HPI and Reports no additional complaints GI Reports no additional complaints Reports no additional complaints Assessment & Plan Assessment & Plan (1) ASCUS with positive high risk HPV cervical: Code(s): R87.610 - Atypical squamous cells of undetermined significance on cytologic smear of cervix (ASC-US); R87.810 - Cervical high risk human papillomavirus (HPV) DNA test positive Plan: Discussed with the patient the pathology results of the colposcopy endocervical curettage (negative). Discussed with the patient the sensitivity specificity, positive and negative predictive value in detecting cervical cancer in addition discussed the regression, persistence and progression rates. Recommended co- testing in 12 months, if cytology and or HPV are abnormal will proceed was colposcopy biopsy and endocervical curettage. Instructions given to the patient to schedule a co test appointment in 1 year. All questions answered the patient verbalized understanding. Coding Level of Care Code Est Pt Level 3 (56406) Diagnoses ASCUS with positive high risk HPV cervical R87.610; R87.810
[2023-06-03 09:46] VITALS: BP 118/70; BMI 42.6
== END 2023-06-03 09:49 | disposition home or self-care (01) ==
LOC: HO.HWS 09:34
PROVIDERS: PCP Nurse Practitioner Family; Visit Provider Obstetrics & Gynecology
DX: R87.610 Atypical squamous cells of undetermined significance on cytologic smear of cervix (ASC-US) (principal); R87.810 Cervical high risk human papillomavirus (HPV) DNA test positive
CPT/HCPCS: 99213

== ENCOUNTER → 2023-06-03 09:34 | Outpatient (BNVA) | payer OTHER, SELFPAY | PROVIDERS: PCP Nurse Practitioner Family; Visit Provider Obstetrics & Gynecology | DX: R87.610 Atypical squamous cells of undetermined significance on cytologic smear of cervix (ASC-US) (principal); R87.810 Cervical high risk human papillomavirus (HPV) DNA test positive | CPT/HCPCS: 99212 ==